=== PATIENT | female | born 1995 | race Caucasian/White ===

== ENCOUNTER 2021-11-26 18:44 | Outpatient (REF) | payer SELFPAY ==
[2021-11-27 09:33] LABS: HBs Antibody, Quant 68.3 mIU/mL (See Note); Hepatitis B Surface Ab Positive (See Note)
[2021-11-27 11:50] LABS: Varicella IgG Antibody Positive (See Note)
[2021-11-27 11:54] LABS: Measles IgG Antibody Positive (See Note); Mumps Antibody IgG Positive (See Note); Rubella IgG Ab (UVM) Positive (See Note)
[2021-11-28 12:43] LABS: TB Interpretation Negative (Negative)
== END 2021-11-26 18:45 | disposition home or self-care (01) ==
LOC: LBO 18:44
PROVIDERS: Visit Provider Nurse Practitioner Family
DX: Z02.1 Encounter for pre-employment examination (principal); Z11.59 Encounter for screening for other viral diseases; Z11.1 Encounter for screening for respiratory tuberculosis; Z01.84 Encounter for antibody response examination
CPT/HCPCS: 36415; 86706; 86787; 86480; 86735; 86762; 86765

== ENCOUNTER 2022-05-28 01:28 | Outpatient (CLI) | payer OTHER, SELFPAY ==
[2022-05-28 12:32] LABS: HCT 38.9 % (36.0-46.0); HGB 12.9 g/dL (11.2-15.7); MCH 29.1 pg (27.0-33.0); MCHC 33.2 % (32.0-36.0); MCV 88 fL (80-95); MPV 10.3 fL (8.0-11.0); Platelet Count 191 10^3/uL (130-400); RBC 4.43 10^6/uL (3.93-5.22); RDW 13.5 % (11.7-14.6); RDW-SD 43.7 fL; WBC 7.78 10^3/uL (4.4-10.8)
[2022-05-28 13:36] LABS: ALT 17 U/L (14-59); AST 14 U/L (15-37); Albumin 3.8 g/dL (3.4-5.0); Alkaline Phosphatase 61 U/L (46-116); Anion Gap 9.6 mmol/L (3-11); BUN 11 mg/dL (7-18); Bilirubin, Total 0.4 mg/dL (0.2-1.0); CO2 26.4 mmol/L (21.0-32.0); CREATININE 0.8 mg/dL (0.55-1.02); Calculated LDL 94 mg/dL (<100); Chloride 103 mmol/L (98-107); Cholesterol 196 mg/dL (<200); Estimated GFR 104.15 (mL/min/1.73m2); Glucose 80 mg/dL (74-106); HDL Cholesterol 84 mg/dL (40-60); Potassium 3.9 mmol/L (3.5-5.1); Sodium 139 mmol/L (136-145); TSH (W/Ref FT4) 1.88 uIU/mL (0.36-3.74); Total Protein 7.7 g/dL (6.4-8.2); Triglyceride 90 mg/dL (<150); Vitamin B12 301 pg/mL (193-986)
[2022-05-30 05:52] LABS: Vitamin D 25 Total 30.9 ng/mL (30-100)
== END 2022-05-28 01:29 | disposition home or self-care (01) ==
LOC: LBO 01:29
PROVIDERS: PCP Student in an Organized Health Care Education/Training Program; Visit Provider Student in an Organized Health Care Education/Training Program
DX: Z13.220 Encounter for screening for lipoid disorders (principal); E46 Unspecified protein-calorie malnutrition; E55.9 Vitamin D deficiency, unspecified; G40.909 Epilepsy, unspecified, not intractable, without status epilepticus; Z90.49 Acquired absence of other specified parts of digestive tract; E53.8 Deficiency of other specified B group vitamins; R00.0 Tachycardia, unspecified; Z76.89 Persons encountering health services in other specified circumstances; Z97.3 Presence of spectacles and contact lenses; Z86.2 Personal history of diseases of the blood and blood-forming organs and certain disorders involving the immune mechanism
CPT/HCPCS: 36415; 80053; 80061; 82306; 85027; 82607; 84443

== ENCOUNTER 2022-07-24 13:07 | Emergency (ER) | payer OTHER, SELFPAY ==
[2022-07-24] VITALS (15 sets, daily range): BP systolic 114–132; BP diastolic 54–78; PULSE 76–134; RESP 19–32; O2SAT 98–100
--- NOTE | 2022-07-24 13:15 | DI.CT_ITS ---
Exam(s) CT HEAD WO EXAM: CT HEAD WO CLINICAL HISTORY: headache occipital with visual defect. TECHNIQUE: Imaging Protocol: Axial computed tomography images with coronal and sagittal reformatted images were created and reviewed COMPARISON: No exams were available for comparison FINDINGS: There is a large area of acute parenchymal hemorrhage seen in the right posterior parietal lobe as we ll as some more inferior foci in the superior occipital lobe as well as medially adjacent to the falx . There is mild surrounding edema and some compression on the posterior horn of the right lateral ve ntricle. There is extension of hemorrhage into the posterior horn of the right lateral ventricle. T here is right to left midline shift of maximally 5 millimeters. The hemorrhage measures roughly 5.2 cm cephalo caudad by 2.8 cm transverse by 3.5 cm AP. No underlying mass is visible but not excluded d ue to large size of the hemorrhage. There is no skull fracture, subdural or epidural collection. The sinuses and mastoid air cells appear clear. The orbits and pituitary are unremarkable. IMPRESSION: Acute parenchymal hemorrhage in the posteromedial right parietal lobe with additional hemorrhagic foc i seen inferiorly. Some edema and midline shift is present. The findings were discussed with Dr. Leonel Funes of the emergency department. RADIATION DOSE DELIVERED: Total DLP DATA REPOSITORY: All CT scans at this facility are submitted to the National Radiology Data Registry (NRDR) Dose Index Registry (DIR) with the [employer] (ACR). RADIATION OPTIMIZATION: All CT scans at this facility use at least one of these dose optimization te chniques: automated exposure control; mA and/or kV adjustment per patient size (includes targeted exa ms where dose is matched to clinical indication); or iterative reconstruction.
--- NOTE | 2022-07-24 13:27 | ED.GENADUL_ITS ---
Discharge Plan Disposition Patient Disposition: Transfer-Acute Inpatient Care Specific Acute Inpt Facility: [facility] Condition: Critical Discharge Details Clinical Impression: Acute intra-cranial hemorrhage Primary Care Provider: Izzy Haque ED Provider: Leonel Funes Home Meds and New Rx's Prescriptions: No Action bupropion HCl [Wellbutrin XL] 150 mg tablet extended release 24 hr 150 mg PO QAM fluoxetine 20 mg capsule 20 mg PO DAILY norgestimate-ethinyl estradiol [Tri Femynor] 0.18/0.215/0.25 mg-35 mcg (28) tablet 1 tab PO DAILY Discharge Data Discharge Date/Time-TO BE ENTERED AT DEPARTURE: 07/24/22 15:03 Medical Decision Making 1330 --27-year-old female presents after presyncopal episode with severe occipital headache, visual disturbance and slurred speech. Patient is tachycardic. Normotensive. She has no slurred speech no visual disturbance. Neurologic exam limited secondary to nausea and spasm. I am concerned about potential for intracranial hemorrhage versus complex migraine. Plan to obtain stat CT of the head. Patient is not on any anticoagulants. It seems like she had a hyperventilatory episode and now has hand spasm bilaterally. She is quite anxious. I will give Versed 1 mg IV. 1400 --I reviewed CT of the head while patient was still in radiology and note significant right parietal intracranial hemorrhage with some mass-effect and midline shift. Patient rushed back to the emergency department. HOB 30%. I have ordered mannitol 0.25 g/kg. Keppra 1 g for seizure prophylaxis. I have called [facility] transfer center to request emergent transfer. Awaiting callback. CT imaging sent for review. -- I called [facility] again to request transfer and they noted that they were uploading images and would call back. [facility] is not flying. I have put ground unit on standby for transfer. Results were discussed with the patient. Patient requesting additional Versed for anxiety. Additional 1 mg Versed given. 1439-- I spoke with on-call neurosurgeon at [facility], discussed ED presentation course, she recommends giving additional mannitol up to 1 g/kg total. She recommends giving additional Keppra 1 g for seizure prophylaxis. I spoke with Dr. Guy, [facility] ED, she will accept the patient in transfer. I reassessed the patient -she is oriented and following commands. She is fatigued. Airway intact. Plan to send to ED RN that assistant in nursing to expedite transfer as we have no butcher capability at this time to continue medications. -- Prior to transfer patient appeared more somnolent. I spoke with her about benefit of intubation pretransfer and she refused. I then decided to travel with the patient to [facility] to ensure safest transfer possible. I observed patient for the entirety of transfer. She did have some episodes of vomiting as well as some focal seizure involving her left upper extremity. She was able to respond and protect her airway entire transport. She did become more somnolent when we arrived at [facility]. Care was transitioned to [facility] ED physician. Lab Data Lab results reviewed: Yes I reviewed the patient's lab results. Labs: Laboratory Tests Range/Units 07/24/22 07/24/22 07/24/22 13:20 13:20 13:20 WBC (4.4-10.8) 10^3/uL 13.15 H RBC (3.93-5.22) 10^6/uL 4.10 Hgb (11.2-15.7) g/dL 12.0 Hct (36.0-46.0) % 35.6 L MCV (80-95) fL 87 MCH (27.0-33.0) pg 29.3 MCHC (32.0-36.0) % 33.7 RDW (11.7-14.6) % 14.5 Plt Count (130-400) 10^3/uL 278 MPV (8.0-11.0) fL 10.2 Immature Gran % 0.2 Neutrophils % 58.9 Lymphocytes % 34.7 Monocytes % 5.2 Eosinophils % 0.6 Basophils % 0.4 Nucleated RBC % (0.0-0.3) % 0.0 Absolute Neutrophils (1.2-6.7) 10^3/uL 7.75 H Absolute Lymphocytes (1.2-3.4) 10^3/uL 4.56 H Absolute Monocytes (0.1-0.8) 10^3/uL 0.68 Absolute Eosinophils (0.0-0.7) 10^3/uL 0.08 Absolute Basophils (0.0-0.2) 10^3/uL 0.05 PT (9.3-11.0) sec 9.9 INR (0.9-1.1) 1.0 APTT (21.0-27.5) sec 19.6 L Sodium (136-145) mmol/L 140 Potassium (3.5-5.1) mmol/L 3.8 Chloride (98-107) mmol/L 102 Carbon Dioxide (21.0-32.0) mmol/L 23.7 Anion Gap (3-11) mmol/L 14.3 H BUN (7-18) mg/dL 9 Creatinine (0.55-1.02) mg/dL 1.0 Est GFR (CKD-EPI 2020) (mL/min/1.73m2) 79.68 Glucose (74-106) mg/dL 105 Calcium (8.5-10.1) mg/dL 9.2 Magnesium (1.8-2.4) mg/dL 2.0 Total Bilirubin (0.2-1.0) mg/dL 0.4 AST (15-37) U/L 14 L ALT (14-59) U/L 12 L Alkaline Phosphatase (46-116) U/L 56 Troponin I (<or=60) ng/L < 50 Total Protein (6.4-8.2) g/dL 7.6 Albumin (3.4-5.0) g/dL 4.0 COVID-19 Source Range/Units 07/24/22 14:17 WBC (4.4-10.8) 10^3/uL RBC (3.93-5.22) 10^6/uL Hgb (11.2-15.7) g/dL Hct (36.0-46.0) % MCV (80-95) fL MCH (27.0-33.0) pg MCHC (32.0-36.0) % RDW (11.7-14.6) % Plt Count (130-400) 10^3/uL MPV (8.0-11.0) fL Immature Gran % Neutrophils % Lymphocytes % Monocytes % Eosinophils % Basophils % Nucleated RBC % (0.0-0.3) % Absolute Neutrophils (1.2-6.7) 10^3/uL Absolute Lymphocytes (1.2-3.4) 10^3/uL Absolute Monocytes (0.1-0.8) 10^3/uL Absolute Eosinophils (0.0-0.7) 10^3/uL Absolute Basophils (0.0-0.2) 10^3/uL PT (9.3-11.0) sec INR (0.9-1.1) APTT (21.0-27.5) sec Sodium (136-145) mmol/L Potassium (3.5-5.1) mmol/L Chloride (98-107) mmol/L Carbon Dioxide (21.0-32.0) mmol/L Anion Gap (3-11) mmol/L BUN (7-18) mg/dL Creatinine (0.55-1.02) mg/dL Est GFR (CKD-EPI 2020) (mL/min/1.73m2) Glucose (74-106) mg/dL Calcium (8.5-10.1) mg/dL Magnesium (1.8-2.4) mg/dL Total Bilirubin (0.2-1.0) mg/dL AST (15-37) U/L ALT (14-59) U/L Alkaline Phosphatase (46-116) U/L Troponin I (<or=60) ng/L Total Protein (6.4-8.2) g/dL Albumin (3.4-5.0) g/dL COVID-19 Source Nasal/Nares Sign Out No HPI General Mode of arrival: ambulatory . Date/Time Provider Initiated Documentation: 07/24/22 13:17 . Limitations to Documentation: no limitations . Information obtained by: patient . 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 She notes she has had headache today. Headache is now worse. Pain localized to occipital head. She has associated nausea and visual defect. She notes she is seeing rainbows. Symptoms are severe. No modifiers. Patient also having cramping in her hands and was having some hyperventilation per nursing. Related Data Home Medications Medication Instructions Recorded Confirmed bupropion HCl 150 mg 24 hr tablet, 150 mg PO QAM 03/29/22 07/24/22 extended release (Wellbutrin XL) fluoxetine 20 mg capsule 20 mg PO DAILY 03/29/22 07/24/22 norgestimate-ethinyl estradiol 1 tab PO DAILY 07/22/22 11/16/22 0.18 mg/0.215mg/0.25mg-35 mcg(28)tablet (Tri Femynor) Allergies Allergy/AdvReac Type Severity Reaction Status Date / Time No Known Allergies Allergy Verified 06/07/22 11:03 Review of Systems All systems reviewed & are unremarkable except as noted in HPI and below Constitutional Constitutional: Denies fever(s) Neurologic Neurologic: Reports as per HPI PFSH All Active Problems (Updated 07/24/22 @ 14:41 by Leonel Funes MD) Acute intra-cranial hemorrhage (Acute) General counseling and advice for contraceptive management (Acute) Has received third dose of hepatitis B vaccine (Chronic) s/p multiple immuniztn w/o conversion .. [ ] Occ Med, Summer 2021 Encounter for medication review and counseling (Acute) consider wellbutrin review with KG .. SL vs XL due to elevated HR and sleep issues at times At risk for osteoporosis (Acute) 2' Vit B12, Vit D deficiency < 26yo .. presuming malabsorption.. Screening TBD. Regular menses. Active. Non smoker. Family history of high cholesterol (Acute) Mo .. but no active known CVD Wears glasses (Chronic) Contacts Vitamin B12 deficiency (Acute) Presumed malabsorption, but no work up per [place] [facility] Hx per pt report. Vitamin D deficiency (Acute) Medical History Hx: UTI (urinary tract infection) Three, but w/o complications (@ ROS, 27 yo) Migraine As teen, none now x 2 yrr (05/22/22). Seizure disorder As a child, gran mal and Hx Depakote. None since 16yo. Surgical History History of cholecystectomy (~09/2019) 2' obstructing stone, sudden, urgent surgery. Intermittent nausea since then.. Family History Maternal Grandfather Alcohol use disorder Mother Depression Heart disease Father Depression Brother Depression Social History Smoking/Tobacco Use Status: Never Smoking risk assessment performed?: Yes Alcohol Intake: never Drug use: Never Substance use type: does not use Adopted: No Caregiver/Support person: No Foster care: No Household members: spouse Housing: house Number of Children: 0 Communication Needs: Corrective Lenses Education Level: college Details: bachelor's degree Do you need help understanding health information?: Never current occupation: RN Pets and animals: No Sexually active: Yes Do you think of yourself as: straight/heterosexual Current gender identity: female What is your relationship status?: How often do you talk on the phone with friends or family?: twice per week How often do you get together with friends or relatives?: once per week How often do you attend adventist or druze services?: decline to answer Do you belong to any clubs or organized social groups?: no Panel score (0-1 are the most socially isolated patients): 2 What type of physical activity do you participate in: other Details: hiking, kayaking and yoga Duration: 30-45 minutes/day Frequency: 3-4 times per week Amanda/Sabianist: None Special amanda needs: No Seatbelt use: always Helmet use: Yes Helmet use: always Drive intox or ride w/intox day haul or farm charter bus driver: No Exam Const General: cooperative and in distress Orientation: alert, oriented to person, oriented to place and oriented to time [facility] Head: normocephalic and atraumatic Mouth: mucous membranes dry Eyes Conjunctivae: normal conjunctivae Sclera: normal sclerae Pupils: PERRL Neck Neck: trachea midline and supple Resp Auscultation: clear to auscultation bilaterally, no rales, no rhonchi and no wheezes Cardio Rate: tachycardic Rhythm: regular rhythm Heart Sounds: no murmurs GI Palpation: soft, not firm, no guarding, no masses, not rigid and nontender Skin General skin exam: no rashes or lesions noted Neuro General: patient alert and patient awake Speech: other (Slurred speech) Other: Patient with spasm of hands bilaterally, exam limited secondary to spasm and nausea Extrem General: no edema Other: Spasm of her hands Psych Appearance: grossly normal Mental Status: mental status grossly normal Affect: anxious affect Critical Care Time Critical Care Time Critical Care Time: Yes Total Critical Care Time: 75 Attestation: I spent greater than 75 minutes addressing this patient's immediate life threats. Please see MDM section of note. This time was spent engaged in work dir ectly related to the patient's care, exclusive of separate procedures, and failure to initiate these interventions would have likely resulted in clinically significant or life threatening deterioration in the patient's condition.
[2022-07-24] MEDS: Lactated Ringers 1,000 ML 1000 ML IV (13:33)
--- NOTE | 2022-07-24 13:33 | NUR.NOTE ---
Nursing Note: 1315-Brought patient to room 7 in a wheelchair. Pt crying and stating that her hands are numb. Pt hyperventalting. Encouraged pt to slow breathing. Pt developed slowed speech and difficulty directing her hand to put her finger in the pulse ox. 1320-Pt became nauseated. IV established. Blood sample drawn. Dr. Funes at bedside for evaluation. Speech worsening.
[2022-07-24] MEDS: Ondansetron 4 MG/2 ML VIAL IVP (13:34)
[2022-07-24] MEDS: Midazolam 2 MG/2 ML VIAL 1 MG IVP ×2 (13:35→14:32)
[2022-07-24] MEDS: levETIRAcetam 1,000 MG in Normal Saline 100 ML 400 MG IVPB ×2 (14:00→14:42)
[2022-07-24 14:02] LABS: Abs Immature Grans 0.03 10^3/uL (0.0-0.06); Absolute Basophil Count 0.05 10^3/uL (0.0-0.2); Absolute Eosinophil Count 0.08 10^3/uL (0.0-0.7); Absolute Lymphocyte Count 4.56 10^3/uL (1.2-3.4); Basophils % 0.4; Eosinophils % 0.6; HCT 35.6 % (36.0-46.0); Immature Grans % 0.2; Lymphocytes % 34.7; MCH 29.3 pg (27.0-33.0); MCHC 33.7 % (32.0-36.0); MCV 87 fL (80-95); MPV 10.2 fL (8.0-11.0); Monocytes % 5.2; Neutrophils % 58.9; Platelet Count 278 10^3/uL (130-400); RDW 14.5 % (11.7-14.6); RDW-SD 46.3 fL; WBC 13.15 10^3/uL (4.4-10.8)
[2022-07-24 14:03] LABS: Absolute Monocyte Count 0.68 10^3/uL (0.1-0.8); Absolute Neutrophil Count 7.75 10^3/uL (1.2-6.7)
[2022-07-24 14:21] LABS: ALT 12 U/L (14-59); AST 14 U/L (15-37); Alkaline Phosphatase 56 U/L (46-116); Anion Gap 14.3 mmol/L (3-11); BUN 9 mg/dL (7-18); Bilirubin, Total 0.4 mg/dL (0.2-1.0); CO2 23.7 mmol/L (21.0-32.0); Calcium 9.2 mg/dL (8.5-10.1); Chloride 102 mmol/L (98-107); Estimated GFR 79.68 (mL/min/1.73m2); Glucose 105 mg/dL (74-106); Potassium 3.8 mmol/L (3.5-5.1); Sodium 140 mmol/L (136-145); Total Protein 7.6 g/dL (6.4-8.2); Troponin I < 50 ng/L (<or=60)
[2022-07-24 14:21] LABS: Source Nasal/Nares
[2022-07-24 14:31] LABS: PTT Activated 19.6 sec (21.0-27.5); Prothrombin Time 9.9 sec (9.3-11.0)
[2022-07-24 14:53] LABS: COVID-19 PCR Negative (Negative)
[2022-07-24] MEDS: fentaNYL 100 MCG/2 ML VIAL 50 MCG IVP (14:54)
--- NOTE | 2022-07-24 17:45 | NUR.NOTE ---
Nursing Note: Dr. Funes asked to get information from [place], [place] [phone]. They referred me to another [facility] facility at [phone] for the MRI/MRA reports from 05/02/2020. They stated to me due to HIPPA that they would need a release from the patient in order to release those records. They gave me the ordering providers information. Left a message for them to call to send information. Brayden Mujica MD [id number] [place], [place] [phone] Called [facility] @ [phone] and Ciera from the ED stated that they had contacted them and that they would be receiving records.
== END 2022-07-24 15:03 | disposition short-term general hospital (02) ==
LOC: ER 14:43
PROVIDERS: Emergency Provider Student in an Organized Health Care Education/Training Program; PCP Student in an Organized Health Care Education/Training Program
DX: I62.9 Nontraumatic intracranial hemorrhage, unspecified (principal); Z20.822 Contact with and (suspected) exposure to COVID-19
CPT/HCPCS: 36415; 80053; 87635; 96361; 96365; 96367; 96368; 96375; 96376; 99291; 99292; 70450; 83735; 84484; 85025; 85610; 85730; J1953; J2250; J2405; J3010

== ENCOUNTER 2022-11-16 20:49 | Emergency (ER) | payer OTHER, SELFPAY ==
[2022-11-16] VITALS (15 sets, daily range): BP systolic 101–146; BP diastolic 59–82; PULSE 71–115; RESP 16–23; TEMP 37.1; O2SAT 97–100
--- NOTE | 2022-11-16 20:45 | DI.CT_ITS ---
Exam(s) CT HEAD WO EXAM: CT HEAD WO CLINICAL HISTORY: Dizziness. TECHNIQUE: Imaging Protocol: Axial computed tomography images with coronal and sagittal reformatted images were created and reviewed COMPARISON: CT CT HEAD WO from 07/24/[address] BRAIN CTA from 11/16/2022 FINDINGS: Ventricles and Extra axial spaces: Normal in size and morphology for the patient's age. Dilatation of the posterior horn of the right lateral ventricle adjacent area of encephalomalacia. Ventricles o therwise normal in size. Hemorrhage: None. Cerebral parenchyma: Area of encephalomalacia in the right parietal occipital area. This is in locat ion of the previously noted hemorrhage. No acute hemorrhage or infarct is seen. There is no evidenc e of mass. Midline shift: None. Brainstem/Cerebellum: Normal. Calvarium: Normal. Visualized Paranasal sinuses/Mastoids: Clear. Soft Tissues: Unremarkable. IMPRESSION: Old area of encephalomalacia right a parietal occipital region. No acute intracranial process. RADIATION DOSE DELIVERED: 768.73mGy.cm Total DLP DATA REPOSITORY: All CT scans at this facility are submitted to the National Radiology Data Registry (NRDR) Dose Index Registry (DIR) with the [employer] (ACR). RADIATION OPTIMIZATION: All CT scans at this facility use at least one of these dose optimization te chniques: automated exposure control; mA and/or kV adjustment per patient size (includes targeted exa ms where dose is matched to clinical indication); or iterative reconstruction.
--- NOTE | 2022-11-16 20:45 | RT.EKG_ITS ---
APPROVED REPORT Exam: Resting ECG Reason for Exam: dizziness s/p cva Patient Location: E HR:83 bpm ECG Measurements Heart Rate 83 AXIS NM 133 P 80 QRSd 68 QRS 75 QT 360 T 85 QTc 423 Conclusion Sinus rhythm...normal P axis, V-rate 60- 99 Physician: no stemi
--- NOTE | 2022-11-16 20:55 | ED.GENADUL_ITS ---
Discharge Plan Disposition Patient Disposition: Home Condition: Stable Discharge Details Clinical Impression: Dizziness Primary Care Provider: Izzy Haque ED Provider: Maegan Rodriguez Home Meds and New Rx's Prescriptions: Continued ecsywqxace-fuzgmmkyfkirh-ewju 50-325-40 mg capsule 1 cap PO Q6H PRN (Reason: headache) Rx Instructions: Use sparingly. Eliquis 5 mg tablet 5 mg PO BID Qty: 180 2RF Rx Instructions: [place] [facility] [place]vet[place] 500 mg tablet 500 mg PO BID Qty: 180 3RF Rx Instructions: [place] [facility] [place]abap[place] 300 mg capsule 300 mg PO TID Qty: 270 3RF Rx Instructions: [place] [facility] [place]ox[place] 20 mg capsule 20 mg PO DAILY acetaminophen 325 mg capsule 325 mg PO Q4H PRN Rx Instructions: [place] [facility] hydroxyzine HCl 25 mg tablet 25 mg PO QHS Rx Instructions: [place] [facility] lidocaine 4 % adhesive patch,medicated 1 patch topical DAILY PRN Discharge Instructions Instructions: Dizziness (ED) Additional Instructions: Please take the nausea medication as prescribed. CT of your head is within normal limits nothing acute. Please take the meclizine as needed for dizziness. Please return to the ER for any worsening symptoms. Follow up with primary care provider in 3-5 days. Return to ED sooner if any worsening or concerns. Increase oral fluids. Referrals: Izzy Haque DO [Primary Care Provider] - 3 days Medical Decision Making 27-year-old female with a past medical history of intracranial hemorrhage, epilepsy, seizure disorder presents with cute onset of dizziness and nausea while watching TV proximately 30 minutes prior to arrival. She denies headache or any other associated symptoms. She is currently going through physical therapy after having a stroke in July of last year. Informed by [facility] operations staff officer that patient just finished a Keppra taper and was taken off her fluoxetine recently as well. Work-up ordered including CBC CMP, TSH, urinalysis, CT head, normal saline and Zofran. CBC is within normal limits, CMP shows potassium 3.2, glucose 147 magnesium 1.7, TSH is elevated 8.69, urinalysis within normal limits. Patient given meclizine and magnesium 400 mg tolerated well without any vomiting. Patient given a meclizine tablet to go and Zofran ODT to go. Discussed tricked return instructions and follow-up care. Patient and family verbalized understanding. This text was generated using Factor 14ation system, please disregard any oddities of phrase or misspellings. Medical Records Medical records reviewed: Yes I reviewed the patient's medical records. Imaging Data Radiologic Study: Imaging: CT Scan Radiologist's impression: FINDINGS: ANTERIOR CIRCULATION: Right internal carotid artery: Intracranial segment is patent with no significant stenosis. No aneurysm. Right middle cerebral artery: No occlusion or significant stenosis. No aneurysm. Right anterior cerebral artery: No occlusion or significant stenosis. No aneurysm. Left internal carotid artery: Intracranial segment is patent with no significant stenosis. No aneurysm. Left middle cerebral artery: No occlusion or significant stenosis. No aneurysm. Left anterior cerebral artery: No occlusion or significant stenosis. No aneurysm. POSTERIOR CIRCULATION: Right vertebral artery: No occlusion or significant stenosis. No aneurysm. Left vertebral artery: No occlusion or significant stenosis. No aneurysm. Basilar artery: No occlusion or significant stenosis. No aneurysm. Right posterior cerebral artery: No occlusion or significant stenosis. No aneurysm. Left posterior cerebral artery: No occlusion or significant stenosis. No aneurysm. Brain: No definite mass, mass effect, or midline shift. Cerebral ventricles: No ventriculomegaly. Bones/joints: Unremarkable. No acute fracture. Soft tissues: Unremarkable. IMPRESSION: No stenosis or aneurysm. Thank you for allowing us to participate in the care of your patient. Dictated and Authenticated by: Keith Greenfield MD Radiologic Study #2: Imaging: CT Scan Radiologist's impression: FINDINGS: Brain: Right parieto-occipital encephalomalacia related to remote episode of parenchymal hemorrhage. No evidence for acute transcortical infarct. No mass effect or midline shift. No extraaxial collection. No acute intracranial hemorrhage. Basal cisterns are patent. Cerebral ventricles: No ventriculomegaly. Paranasal sinuses: Visualized sinuses are unremarkable. No fluid levels. Mastoid air cells: Visualized mastoid air cells are well aerated. Bones/joints: Unremarkable. No acute fracture. Soft tissues: Unremarkable. IMPRESSION: No evidence for acute transcortical infarct, acute intracranial hemorrhage, or mass effect. Thank you for allowing us to participate in the care of your patient. Dictated and Authenticated by: Keith Greenfield MD Lab Data Lab results reviewed: Yes I reviewed the patient's lab results. Labs: Laboratory Tests Range/Units 11/16/22 11/16/22 11/16/22 21:00 21:00 21:12 WBC (4.4-10.8) 10^3/uL 8.62 RBC (3.93-5.22) 10^6/uL 4.19 Hgb (11.2-15.7) g/dL 11.8 Hct (36.0-46.0) % 36.7 MCV (80-95) fL 88 MCH (27.0-33.0) pg 28.2 MCHC (32.0-36.0) % 32.2 RDW (11.7-14.6) % 14.4 Plt Count (130-400) 10^3/uL 207 MPV (8.0-11.0) fL 10.2 Immature Gran % 0.2 Neutrophils % 51.7 Lymphocytes % 38.6 Monocytes % 5.6 Eosinophils % 3.4 Basophils % 0.5 Nucleated RBC % (0.0-0.3) % 0.0 Absolute Neutrophils (1.2-6.7) 10^3/uL 4.46 Absolute Lymphocytes (1.2-3.4) 10^3/uL 3.33 Absolute Monocytes (0.1-0.8) 10^3/uL 0.48 Absolute Eosinophils (0.0-0.7) 10^3/uL 0.29 Absolute Basophils (0.0-0.2) 10^3/uL 0.04 Sodium (136-145) mmol/L 140 Potassium (3.5-5.1) mmol/L 3.2 L Chloride (98-107) mmol/L 103 Carbon Dioxide (21.0-32.0) mmol/L 26.2 Anion Gap (3-11) mmol/L 10.8 BUN (7-18) mg/dL 7 Creatinine (0.55-1.02) mg/dL 0.8 Est GFR (CKD-EPI 2020) (mL/min/1.73m2) 104.15 Glucose (74-106) mg/dL 147 H Calcium (8.5-10.1) mg/dL 8.7 Magnesium (1.8-2.4) mg/dL 1.7 L Total Bilirubin (0.2-1.0) mg/dL 0.3 AST (15-37) U/L 10 L ALT (14-59) U/L 20 Alkaline Phosphatase (46-116) U/L 78 Troponin I (<or=60) ng/L < 50 Total Protein (6.4-8.2) g/dL 7.5 Albumin (3.4-5.0) g/dL 4.3 TSH (0.36-3.74) uIU/mL 8.69 H Urine Color (Yellow) Yellow Urine Clarity (Clear) Clear Urine pH (5-8) 6.5 Ur Specific [place] (1.005-1.025) 1.010 Urine Protein (Negative) mg/dL Negative Urine Ketones (Negative) mg/dL Negative Urine Blood (Negative) Negative Urine Nitrite (Negative) Negative Urine Bilirubin (Negative) Negative Urine Urobilinogen (Up to 0.2) mg/dL 0.2 Ur Leukocyte Esterase (Negative) Negative Urine Glucose (Negative) mg/dL Negative Range/Units 11/16/22 23:53 WBC (4.4-10.8) 10^3/uL RBC (3.93-5.22) 10^6/uL Hgb (11.2-15.7) g/dL Hct (36.0-46.0) % MCV (80-95) fL MCH (27.0-33.0) pg MCHC (32.0-36.0) % RDW (11.7-14.6) % Plt Count (130-400) 10^3/uL MPV (8.0-11.0) fL Immature Gran % Neutrophils % Lymphocytes % Monocytes % Eosinophils % Basophils % Nucleated RBC % (0.0-0.3) % Absolute Neutrophils (1.2-6.7) 10^3/uL Absolute Lymphocytes (1.2-3.4) 10^3/uL Absolute Monocytes (0.1-0.8) 10^3/uL Absolute Eosinophils (0.0-0.7) 10^3/uL Absolute Basophils (0.0-0.2) 10^3/uL Sodium (136-145) mmol/L Potassium (3.5-5.1) mmol/L Chloride (98-107) mmol/L Carbon Dioxide (21.0-32.0) mmol/L Anion Gap (3-11) mmol/L BUN (7-18) mg/dL Creatinine (0.55-1.02) mg/dL Est GFR (CKD-EPI 2020) (mL/min/1.73m2) Glucose (74-106) mg/dL Calcium (8.5-10.1) mg/dL Magnesium (1.8-2.4) mg/dL Total Bilirubin (0.2-1.0) mg/dL AST (15-37) U/L ALT (14-59) U/L Alkaline Phosphatase (46-116) U/L Troponin I (<or=60) ng/L Cancelled Total Protein (6.4-8.2) g/dL Albumin (3.4-5.0) g/dL TSH (0.36-3.74) uIU/mL Urine Color (Yellow) Urine Clarity (Clear) Urine pH (5-8) Ur Specific [place] (1.005-1.025) Urine Protein (Negative) mg/dL Urine Ketones (Negative) mg/dL Urine Blood (Negative) Urine Nitrite (Negative) Urine Bilirubin (Negative) Urine Urobilinogen (Up to 0.2) mg/dL Ur Leukocyte Esterase (Negative) Urine Glucose (Negative) mg/dL HPI General Mode of arrival: ambulatory . Date/Time Provider Initiated Documentation: 11/16/22 20:49 . Limitations to Documentation: no limitations . Information obtained by: patient, RN notes reviewed and old records reviewed . HPI Narrative: 27-year-old female with a past medical history of intracranial hemorrhage, epilepsy, seizure disorder presents with cute onset of dizziness and nausea while watching TV proximately 30 minutes prior to arrival. She denies headache or any other associated symptoms. She is currently going through physical therapy after having a stroke in July of last year. Informed by [facility] operations staff officer that patient just finished a Keppra taper and was taken off her fluoxetine recently as well. Related Data Home Medications Medication Instructions Recorded Confirmed fluoxetine 20 mg capsule 20 mg PO DAILY 03/29/22 10/30/22 acetaminophen 325 mg capsule 325 mg PO Q4H PRN 08/09/22 10/30/22 hydroxyzine HCl 25 mg tablet 25 mg PO QHS 08/09/22 11/16/22 lidocaine 4 % topical patch 1 patch topical DAILY PRN 08/22/22 10/30/22 cowmaqghsx-ohgyepswrbuvd-mnbzwqgg 1 cap PO Q6H PRN headache 08/26/22 10/30/22 50 mg-325 mg-40 mg capsule apixaban 5 mg tablet (Eliquis) 5 mg PO BID #180 tabs 08/27/22 11/16/22 gabapentin 300 mg capsule 300 mg PO TID #270 caps 08/27/22 11/16/22 levetiracetam 500 mg tablet 500 mg PO BID #180 tabs 08/27/22 10/30/22 Previous Rx's Medication Instructions Recorded apixaban 5 mg tablet (Eliquis) 5 mg PO BID #180 tabs 08/27/22 gabapentin 300 mg capsule 300 mg PO TID #270 caps 08/27/22 levetiracetam 500 mg tablet 500 mg PO BID #180 tabs 08/27/22 Allergies Allergy/AdvReac Type Severity Reaction Status Date / Time No Known Allergies Allergy Verified 11/16/22 20:57 General Stated Complaint: Dizzy/Sync PATRICE: 3 Review of Systems All systems reviewed & are unremarkable except as noted in HPI and below PFSH All Active Problems (Updated 11/16/22 @ 22:47 by Maegan Rodriguez NP) Dizziness (Acute) Anticoagulated by anticoagulation treatment (Acute) IUD surveillance (Acute ~10/15/22) Kyleena Nontraumatic cortical hemorrhage of right cerebral hemisphere (Acute) Developmental venous anomaly of cerebrum (Acute) Occipital stroke (Acute) per pt report, 08/18/22, ik [ ] awaiting [facility] [place] [facility] [place]: Rt Parieto-Occip ICH in setting of CVT Vision loss (Acute) per pt report, tel, 08/18/22, ik Cerebral venous sinus thrombosis (Acute) Medical History Acute intracerebral hemorrhage s/p thrombus At risk for osteoporosis 2' Vit B12, Vit D deficiency < 26yo .. presuming malabsorption.. Screening TBD. Regular menses. Active. Non smoker. Brain swelling per pt report, tel, 08/18/22, ik Depressive disorder Encounter for medication review and counseling consider wellbutrin review with KG .. SL vs XL due to elevated HR and sleep issues at times Epilepsy Family history of high cholesterol Mo .. but no active known CVD Has received third dose of hepatitis B vaccine s/p multiple immuniztn w/o conversion .. [ ] Occ Med, Summer 2021 Hx: UTI (urinary tract infection) Three, but w/o complications (@ ROS, 27 yo) Migraine As teen, none now x 2 yrr (05/22/22). Presence of IUD [place] IUD inserted 10/15/22 Seizure disorder As a child, gran mal and Hx Depakote. None since 16yo. Vitamin B12 deficiency Presumed malabsorption, but no work up per [facility] Hx per pt report. Vitamin D deficiency Wears glasses Contacts Surgical History History of cholecystectomy (~09/2019) 2' obstructing stone, sudden, urgent surgery. Intermittent nausea since then.. Family History Maternal Grandfather Alcohol use disorder Mother Depression Heart disease Father Depression Brother Depression Social History Smoking/Tobacco Use Status: Never Smoking risk assessment performed?: Yes Alcohol Intake: never Drug use: Never Substance use type: does not use Adopted: No Caregiver/Support person: No Foster care: No Household members: spouse Housing: house Number of Children: 0 Communication Needs: Corrective Lenses Education Level: college Details: bachelor's degree Do you need help understanding health information?: Never current occupation: RN Pets and animals: No Sexually active: Yes Do you think of yourself as: straight/heterosexual Current gender identity: female What is your relationship status?: How often do you talk on the phone with friends or family?: twice per week How often do you get together with friends or relatives?: once per week How often do you attend druze or church services?: decline to answer Do you belong to any clubs or organized social groups?: no Panel score (0-1 are the most socially isolated patients): 2 What type of physical activity do you participate in: other Details: hiking, kayaking and yoga Duration: 30-45 minutes/day Frequency: 3-4 times per week Amanda/Yazidi: None Special amanda needs: No Seatbelt use: always Helmet use: Yes Helmet use: always Drive intox or ride w/intox tank truck driver: No Female Reproductive History Menstrual control method: progestin IUCD History History 0 Para Hx # Term Pregnancies Multiple births Hx # Pregnancies Ectopic pregnancies AB induced Hx Number of Living Children AB spontaneous Exam Narrative Exam Narrative: Constitutional: Alert and oriented x3. Appears stated age. Normal body habitus. Head: Normocephalic, no trauma. Eyes: Pupils PERRL, Red reflex noted, EOM's intact. Eyelids symmetrical without lesions, discharge, or swelling. ENT: Bilateral TM's WNL, External ear normal to inspection, no mastoid TTP, swelling, or erythema, Nasal turbinates WNL, no nasal discharge. Normal dentition, Posterior pharynx WNL, no exudate. Chest: RRR, Normal S1, S2, distal pulses intact. Resp: Lungs clear to auscultation bilaterally, no wheezes, rales, or rhonchi. Abdomen: Soft, non-distended, Normoactive bowel sounds all 4 quads. Musculoskeletal: Normal gait, 5/5 strength to all four extremities. Skin: No suspicious rashes or lesions. Capillary refill less than 2 sec. Neurologic: Cranial nerves II-XII intact. Alert and oriented x 3. Motor: No deficits noted. Sensory: Intact bilaterally all 4 extremities. Reflexes: DTR's intact bilaterally.. Hematologic/Lymphatic: No ecchymosis, no lymphadenopathy. Course Vital Signs Vital signs: Vital Signs Temperature 37.1 C 11/16/22 20:52 Pulse 115 H 11/16/22 20:52 Respiratory Rate 18 11/16/22 20:52 Blood Pressure 146/82 H 11/16/22 20:52 Pulse Oximetry 100 11/16/22 20:52 Temperature 37.1 C 11/16/22 20:52 Temperature Source Tympanic 11/16/22 20:52 Pulse 115 H 11/16/22 20:52 Respiratory Rate 18 11/16/22 20:52 Blood Pressure 146/82 H 11/16/22 20:52 Blood Pressure Position Sitting 11/16/22 20:52 Pulse Oximetry 100 11/16/22 20:52 Oxygen Delivery Method Room Air 11/16/22 20:52 Oxygen Flow Rate 0 11/16/22 20:52
[2022-11-16] MEDS: Normal Saline 1,000 ML 1000 ML IV (21:05)
[2022-11-16] MEDS: Ondansetron 4 MG/2 ML VIAL IVP (21:06)
[2022-11-16 21:10] LABS: Abs Immature Grans 0.02 10^3/uL (0.0-0.06); Absolute Basophil Count 0.04 10^3/uL (0.0-0.2); Absolute Eosinophil Count 0.29 10^3/uL (0.0-0.7); Absolute Lymphocyte Count 3.33 10^3/uL (1.2-3.4); Absolute Monocyte Count 0.48 10^3/uL (0.1-0.8); Absolute Neutrophil Count 4.46 10^3/uL (1.2-6.7); Basophils % 0.5; Eosinophils % 3.4; HCT 36.7 % (36.0-46.0); HGB 11.8 g/dL (11.2-15.7); Immature Grans % 0.2; Lymphocytes % 38.6; MCH 28.2 pg (27.0-33.0); MCHC 32.2 % (32.0-36.0); MCV 88 fL (80-95); MPV 10.2 fL (8.0-11.0); Monocytes % 5.6; Neutrophils % 51.7; Platelet Count 207 10^3/uL (130-400); RBC 4.19 10^6/uL (3.93-5.22); RDW 14.4 % (11.7-14.6); RDW-SD 46.5 fL; WBC 8.62 10^3/uL (4.4-10.8)
--- NOTE | 2022-11-16 21:15 | DI.CT_ITS ---
Exam(s) CT BRAIN CTA EXAM: CT BRAIN CTA CLINICAL HISTORY: Dizziness. TECHNIQUE: Imaging Protocol: Axial CT angiography was performed with multi-slice acquisition and mu lti-planar and/or 3D reconstructions. CONTRAST MATERIAL: Intravenous: Omnipaque 350 Contrast volume:85 cc COMPARISON: CT CT HEAD WO from 11/16/2022 FINDINGS: Internal Carotid Arteries: Petrous: Normal. Cavernous: Normal. Cerebral: Normal. Middle Cerebral Arteries: Right: No aneurysm, occlusion or significant stenosis. Left: No aneurysm, occlusion or significant stenosis. Anterior Cerebral Arteries: Right: No aneurysm, occlusion or significant stenosis. Left: No aneurysm, occlusion or significant stenosis. Posterial Cerebral Arteries: Right: No aneurysm, occlusion or significant stenosis. Left: No aneurysm, occlusion or significant stenosis. Vertebral Arteries: Right: No aneurysm, occlusion or significant stenosis. Left: No aneurysm, occlusion or significant stenosis. Basilar Artery: No aneurysm, occlusion or significant stenosis. IMPRESSION: Normal CTA examination of the [place]. RADIATION DOSE DELIVERED: 1,103.2mGy.cm Total DLP DATA REPOSITORY: All CT scans at this facility are submitted to the National Radiology Data Registry (NRDR) Dose Index Registry (DIR) with the [employer] (ACR). RADIATION OPTIMIZATION: All CT scans at this facility use at least one of these dose optimization te chniques: automated exposure control; mA and/or kV adjustment per patient size (includes targeted exa ms where dose is matched to clinical indication); or iterative reconstruction.
[2022-11-16 21:18] LABS: Bilirubin Negative (Negative); Blood Negative (Negative); Clarity Clear (Clear); Glucose Negative (Negative); Ketones Negative (Negative); Leukocyte Esterase Negative (Negative); Nitrite Negative (Negative); Urobilinogen 0.2 mg/dL (Up to 0.2); pH 6.5 (5-8)
[2022-11-16 21:35] LABS: ALT 20 U/L (14-59); AST 10 U/L (15-37); Albumin 4.3 g/dL (3.4-5.0); Alkaline Phosphatase 78 U/L (46-116); Anion Gap 10.8 mmol/L (3-11); BUN 7 mg/dL (7-18); Bilirubin, Total 0.3 mg/dL (0.2-1.0); CO2 26.2 mmol/L (21.0-32.0); CREATININE 0.8 mg/dL (0.55-1.02); Calcium 8.7 mg/dL (8.5-10.1); Chloride 103 mmol/L (98-107); Estimated GFR 104.15 (mL/min/1.73m2); Glucose 147 mg/dL (74-106); Magnesium 1.7 mg/dL (1.8-2.4); Potassium 3.2 mmol/L (3.5-5.1); Sodium 140 mmol/L (136-145); TSH 8.69 uIU/mL (0.36-3.74); Total Protein 7.5 g/dL (6.4-8.2); Troponin I < 50 ng/L (<or=60)
[2022-11-16] MEDS: Normal Saline - Diluent 50 ML VIAL IV (21:36)
[2022-11-16] MEDS: Omnipaque 350 MG/ML 100 ML BTL IJ (21:37)
--- NOTE | 2022-11-16 22:00 | DI.VRAD_ITS ---
PROCEDURE INFORMATION: Exam: CT Head Without Contrast Exam date and time: 11/16/2022 9:17 PM Age: 27 years old Clinical indication: Dizziness TECHNIQUE: Imaging protocol: Computed tomography of the head without contrast. COMPARISON: CT HEAD WO 07/24/2022 1:41 PM FINDINGS: Brain: Right parieto-occipital encephalomalacia related to remote episode of parenchymal hemorrhage. No evidence for acute transcortical infarct. No mass effect or midline shift. No extra-axial collection. No acute intracranial hemorrhage. Basal cisterns are patent. Cerebral ventricles: No ventriculomegaly. Paranasal sinuses: Visualized sinuses are unremarkable. No fluid levels. Mastoid air cells: Visualized mastoid air cells are well aerated. Bones/joints: Unremarkable. No acute fracture. Soft tissues: Unremarkable. IMPRESSION: No evidence for acute transcortical infarct, acute intracranial hemorrhage, or mass effect. Dictated and Authenticated by: Keith Greenfield MD. Ordering:GWENDOLYN Issa MD
--- NOTE | 2022-11-16 22:02 | DI.VRAD_ITS ---
PROCEDURE INFORMATION: Exam: CTA Head With Contrast, Arteriography Exam date and time: 11/16/2022 9:24 PM Age: 27 years old Clinical indication: Dizziness and giddiness; Patient HX: Dizziness, sudden onset today, per PT: Previous bleed imaging done [facility] [place] TECHNIQUE: Imaging protocol: Computed tomographic angiography of the head with contrast. Exam focused on the arteries. 3D rendering (Not supervised by radiologist): MIP and/or 3D reconstructed images were created by the technologist. COMPARISON: CT HEAD WO 11/16/2022 9:17 PM FINDINGS: ANTERIOR CIRCULATION: Right internal carotid artery: Intracranial segment is patent with no significant stenosis. No aneurysm. Right middle cerebral artery: No occlusion or significant stenosis. No aneurysm. Right anterior cerebral artery: No occlusion or significant stenosis. No aneurysm. Left internal carotid artery: Intracranial segment is patent with no significant stenosis. No aneurysm. Left middle cerebral artery: No occlusion or significant stenosis. No aneurysm. Left anterior cerebral artery: No occlusion or significant stenosis. No aneurysm. POSTERIOR CIRCULATION: Right vertebral artery: No occlusion or significant stenosis. No aneurysm. Left vertebral artery: No occlusion or significant stenosis. No aneurysm. Basilar artery: No occlusion or significant stenosis. No aneurysm. Right posterior cerebral artery: No occlusion or significant stenosis. No aneurysm. Left posterior cerebral artery: No occlusion or significant stenosis. No aneurysm. Brain: No definite mass, mass effect, or midline shift. Cerebral ventricles: No ventriculomegaly. Bones/joints: Unremarkable. No acute fracture. Soft tissues: Unremarkable. IMPRESSION: No stenosis or aneurysm. Dictated and Authenticated by: Keith Greenfield MD. Ordering:GWENDOLYN Issa MD
[2022-11-16] MEDS: Magnesium Oxide 400 MG TAB PO (22:35)
[2022-11-16] MEDS: Meclizine 25 MG TAB PO ×2 (22:35→23:13)
[2022-11-16] MEDS: Ondansetron O.D.T. 4 MG TABEF, 3 TABS/BTL PO (23:05)
== END 2022-11-16 23:17 | disposition home or self-care (01) ==
PROVIDERS: Emergency Provider Registered Nurse Emergency; PCP Student in an Organized Health Care Education/Training Program
DX: R42 Dizziness and giddiness (principal); G40.909 Epilepsy, unspecified, not intractable, without status epilepticus; R11.0 Nausea; Z86.73 Personal history of transient ischemic attack (TIA), and cerebral infarction without residual deficits; R94.6 Abnormal results of thyroid function studies
CPT/HCPCS: 70496; 80053; 93005; 96361; 96374; 99285; 70450; 81003; 83735; 84443; 84484; 85025; 93010; 99284; J2405; J3490

== ENCOUNTER 2022-12-03 23:23 | Outpatient (CLI) | payer OTHER, SELFPAY ==
[2022-12-03 14:28] LABS: Anion Gap 8.8 mmol/L (3-11); BUN 19 mg/dL (7-18); CO2 29.2 mmol/L (21.0-32.0); CREATININE 0.7 mg/dL (0.55-1.02); Chloride 104 mmol/L (98-107); Estimated GFR 122.25 (mL/min/1.73m2); Glucose 81 mg/dL (74-106); Magnesium 2.2 mg/dL (1.8-2.4); Potassium 3.9 mmol/L (3.5-5.1); Sodium 142 mmol/L (136-145); TSH (W/Ref FT4) 3.81 uIU/mL (0.36-3.74); Vitamin B12 336 pg/mL (193-986)
[2022-12-03 14:45] LABS: FREE T4 0.79 ng/dL (0.76-1.46)
[2022-12-03 14:49] LABS: Folate 11.5 ng/mL (8.6-20.0)
== END 2022-12-03 23:24 | disposition home or self-care (01) ==
LOC: LBO 23:24
PROVIDERS: PCP Student in an Organized Health Care Education/Training Program; Visit Provider Student in an Organized Health Care Education/Training Program
DX: G08 Intracranial and intraspinal phlebitis and thrombophlebitis (principal); G40.909 Epilepsy, unspecified, not intractable, without status epilepticus; G93.6 Cerebral edema; H54.7 Unspecified visual loss; I61.1 Nontraumatic intracerebral hemorrhage in hemisphere, cortical; I63.9 Cerebral infarction, unspecified; Q28.3 Other malformations of cerebral vessels; R42 Dizziness and giddiness; Z79.01 Long term (current) use of anticoagulants
CPT/HCPCS: 36415; 80048; 82607; 82746; 83735; 84439; 84443

== ENCOUNTER 2023-02-04 03:54 | Outpatient (CLI) | payer OTHER, SELFPAY ==
[2023-02-04 17:23] LABS: TSH (W/Ref FT4) 3.26 uIU/mL (0.36-3.74)
[2023-02-05 09:21] LABS: Lab Add On Test DONE
[2023-02-05 09:42] LABS: FREE T4 0.89 ng/dL (0.76-1.46)
[2023-02-05 17:53] LABS: T3,Free 3.8 pg/mL (2.8-5.3)
== END 2023-02-04 03:55 | disposition home or self-care (01) ==
LOC: LBO 03:54
PROVIDERS: PCP Student in an Organized Health Care Education/Training Program; Visit Provider Student in an Organized Health Care Education/Training Program
DX: R94.6 Abnormal results of thyroid function studies (principal); R79.89 Other specified abnormal findings of blood chemistry
CPT/HCPCS: 36415; 84439; 84443; 84481

== ENCOUNTER 2023-05-01 04:21 | Outpatient (CLI) | payer OTHER, SELFPAY ==
--- NOTE | 2023-05-01 11:20 | PDOC.EEG_ITS ---
Neurology EEG EEG: [facility] Department of Neurology EEG REPORT Date of Recordin05/01/23 Interpreting Physician: Dr. Monique Loyd PCP/Referring Provider: Dr. Izzy Haque Reason for study: Pema Madrigal is a 28 year-old with childhood epilepsy that resolved with more recent CVT and hemorrhagic stroke along with new spells of vision changes within her visual field defect concerning for seizure. Current Medications: Home Medications Medication Instructions Recorded Confirmed Type acetaminophen 325 mg capsule 325 mg PO Q4H PRN 08/09/22 04/08/23 History hydroxyzine HCl 25 mg tablet 25 mg PO QHS 08/09/22 04/08/23 History apixaban 5 mg tablet (Eliquis) 5 mg PO BID #180 tabs 08/27/22 04/08/23 Rx fluoxetine 20 mg capsule 20 mg PO DAILY #90 caps 11/18/22 04/08/23 Rx rimegepant 75 mg disintegrating 75 mg PO ONCE PRN migraine 01/14/23 04/08/23 Rx tablet (Nurtec ODT) headache #8 tabs topiramate 50 mg tablet 50 mg PO .COMPLEX #120 tabs 04/08/23 04/08/23 Rx METHODS: A 21 channel digitized electroencephalogram was performed in the [facility]physiology [facility]. The 10/20 international system of electrode placement was used and bipolar and referential electrode montages were recorded. In addition to EEG the patient was monitored for EKG and lateral/vertical eye movements. Activation procedures of photic stimulation and hyperventilation were performed if applicable. Video was used during activation procedures and during events where applicable. The duration of the recording was 30 minutes. DESCRIPTION OF EEG: The patient was noted to be awake, drowsy, and asleep during the recording. During maximal wakefulness a 9-Hz posterior background rhythm was present which was well-modulated, symmetrical, reactive to eye opening, and of moderate voltage. With eye opening the background activity changed to a low voltage mixture of alpha, beta, and occasional theta range frequencies. Faster frequencies were present in the bilateral anterior head regions. There was a normal anterior-posterior voltage gradient. During drowsiness, there was attenuation of the posterior dominant background rhythm and vertex waves. Stage II sleep was present with symmetrical sleep spindles, K-complexes, and vertex waves. Throughout the recording, there was asymmetry seen between the hemispheres with higher amplitude and irregular mild slowing in the right posterior hemisphere. There were frequent high-amplitudeT6>>>T4 sharp-waves. There were not clearly epileptic. Activating Procedures: Photic stimulation was performed which produced no posterior driving response. Hyperventilation was performed with moderate effort and produced no physiological slowing of the background. EKG: EKG revealed normal sinus rhythm. INTERPRETATION: This EEG is abnormal due to: #1. Focal slowing of the posterior right hemisphere. #2. Frequent T6 sharp-waves, though these were not clearly epileptic. PRIOR EEG: none CLINICAL CORRELATION: The findings above are consistent with the patient's known history of prior right hemisphere hemorrhagic stroke. No definite epileptiform activity was present. Epilepsy remains a clinical diagnosis and a normal EEG does not rule out epilepsy. Clinical correlation is advised. Monique Loyd MD
== END 2023-05-01 04:22 | disposition home or self-care (01) ==
LOC: RT 04:21
PROVIDERS: PCP Student in an Organized Health Care Education/Training Program; Visit Provider Psychiatry & Neurology Neurology
DX: R41.840 Attention and concentration deficit (principal); I69.198 Other sequelae of nontraumatic intracerebral hemorrhage
CPT/HCPCS: 95819

== ENCOUNTER 2023-07-16 12:28 | Outpatient (REF) | payer OTHER, SELFPAY ==
[2023-07-16 13:16] LABS: Anion Gap 8.7 mmol/L (3-11); BUN 9 mg/dL (7-18); CO2 27.3 mmol/L (21.0-32.0); CREATININE 0.7 mg/dL (0.55-1.02); Calcium 9.9 mg/dL (8.5-10.1); Chloride 104 mmol/L (98-107); Estimated GFR 121.49 (mL/min/1.73m2); Glucose 96 mg/dL (74-106); Potassium 4.7 mmol/L (3.5-5.1); Sodium 140 mmol/L (136-145); TSH (W/Ref FT4) 4.01 uIU/mL (0.36-3.74)
[2023-07-16 13:20] LABS: Vitamin D 25 Total 23.1 ng/mL (30-100)
[2023-07-16 13:35] LABS: FREE T4 0.81 ng/dL (0.76-1.46)
== END 2023-07-16 12:29 | disposition home or self-care (01) ==
LOC: LBN 12:28
PROVIDERS: PCP Student in an Organized Health Care Education/Training Program; Visit Provider Student in an Organized Health Care Education/Training Program
DX: R79.89 Other specified abnormal findings of blood chemistry (principal); E55.9 Vitamin D deficiency, unspecified
CPT/HCPCS: 80048; 82306; 84439; 84443; 84481

== ENCOUNTER 2024-02-12 05:16 | Outpatient (CLI) | payer OTHER, SELFPAY ==
[2024-02-12 09:52] LABS: HCT 39.8 % (36.0-46.0); HGB 12.6 g/dL (11.2-15.7); MCH 26.9 pg (27.0-33.0); MCHC 31.7 % (32.0-36.0); MCV 85 fL (80-95); MPV 10.9 fL (8.0-11.0); Platelet Count 191 10^3/uL (130-400); RBC 4.68 10^6/uL (3.93-5.22); RDW 15.9 % (11.7-14.6); RDW-SD 50.4 fL; WBC 4.97 10^3/uL (4.4-10.8)
[2024-02-12 10:45] LABS: Bacteria Rare HPF (Negative); C & S Indicated? No; Casts Negative LPF (Negative); Crystals Negative HPF (Negative); Epithelial Cells Few HPF (Negative); Mucus Trace (Negative); RBC 0-2 HPF (0-2); WBC 0-2 HPF (0-5)
[2024-02-12 11:15] LABS: Folate > 20.0 ng/mL (8.6-20.0)
[2024-02-12 11:19] LABS: ALT 19 U/L (14-59); AST 9 U/L (15-37); Albumin 4.6 g/dL (3.4-5.0); Alkaline Phosphatase 81 U/L (46-116); Anion Gap 9.5 mmol/L (3-11); BUN 11 mg/dL (7-18); Bilirubin, Total 0.5 mg/dL (0.2-1.0); CO2 29.5 mmol/L (21.0-32.0); CREATININE 0.8 mg/dL (0.55-1.02); Calcium 9.3 mg/dL (8.5-10.1); Calculated LDL 92 mg/dL (<100); Chloride 104 mmol/L (98-107); Cholesterol 173 mg/dL (<200); Glucose 93 mg/dL (74-106); HDL Cholesterol 70 mg/dL (40-60); Potassium 3.8 mmol/L (3.5-5.1); Sodium 143 mmol/L (136-145); TSH (W/Ref FT4) 2.15 uIU/mL (0.36-3.74); Triglyceride 58 mg/dL (<150); Vitamin B12 438 pg/mL (193-986); Vitamin D 25 Total 20.7 ng/mL (30-100)
[2024-02-14 17:26] LABS: Levetiracetam 49.8 mcg/mL
== END 2024-02-12 05:17 | disposition home or self-care (01) ==
LOC: LBO 05:16
PROVIDERS: Psychiatry & Neurology Neurology; PCP Student in an Organized Health Care Education/Training Program; Visit Provider Student in an Organized Health Care Education/Training Program
DX: N28.9 Disorder of kidney and ureter, unspecified (principal); I95.9 Hypotension, unspecified; R79.89 Other specified abnormal findings of blood chemistry; E53.8 Deficiency of other specified B group vitamins; E55.9 Vitamin D deficiency, unspecified; Z91.89 Other specified personal risk factors, not elsewhere classified; R53.83 Other fatigue; I69.398 Other sequelae of cerebral infarction; R55 Syncope and collapse; Z13.220 Encounter for screening for lipoid disorders
CPT/HCPCS: 80053; 80061; 82306; 85027; 80177; 81015; 82607; 82746; 84443

== ENCOUNTER 2024-03-09 02:54 | Outpatient (CLI) | payer OTHER, SELFPAY ==
[2024-03-09 12:33] LABS: HCT 40.1 % (36.0-46.0); HGB 13.1 g/dL (11.2-15.7); MCH 28.4 pg (27.0-33.0); MCHC 32.7 % (32.0-36.0); MCV 87 fL (80-95); MPV 10.2 fL (8.0-11.0); Platelet Count 186 10^3/uL (130-400); RBC 4.62 10^6/uL (3.93-5.22); RDW 15.6 % (11.7-14.6); RDW-SD 49.8 fL; WBC 7.76 10^3/uL (4.4-10.8)
[2024-03-09 13:09] LABS: Iron 71 ug/dL (50-170); Total Iron Binding Capacity 425 ug/dL (250-450); Transferrin Sat 17 % (15-50)
[2024-03-09 14:37] LABS: Vitamin D 25 Total 30.7 ng/mL (30-100)
== END 2024-03-09 02:55 | disposition home or self-care (01) ==
LOC: LBO 02:54
PROVIDERS: PCP Student in an Organized Health Care Education/Training Program; Visit Provider Student in an Organized Health Care Education/Training Program
DX: L21.0 Seborrhea capitis (principal); Z12.83 Encounter for screening for malignant neoplasm of skin; R53.83 Other fatigue; R79.89 Other specified abnormal findings of blood chemistry; K90.9 Intestinal malabsorption, unspecified
CPT/HCPCS: 36415; 82306; 85027; 83540; 83550

== ENCOUNTER 2024-07-01 00:02 | Emergency (ER) | payer OTHER, SELFPAY ==
[2024-07-01] VITALS (20 sets, daily range): BP systolic 86–137; BP diastolic 42–66; PULSE 53–86; RESP 10–24; O2SAT 95–100
--- NOTE | 2024-07-01 | RT.EKG_ITS ---
APPROVED REPORT Exam: Resting ECG Reason for Exam: seizure Patient Location: E HR:78 bpm ECG Measurements Heart Rate 78 AXIS VT 162 P 67 QRSd 72 QRS 59 QT 352 T 59 QTc 402 Conclusion Sinus rhythm...normal P axis, V-rate 60- [address] segment or T wave abnormalities to suggest occlusive [place]
--- NOTE | 2024-07-01 00:30 | DI.CT_ITS ---
Exam(s) CT BRAIN CTA EXAM: CT BRAIN CTA CLINICAL HISTORY: new generalized seizure, hx AVM/craniotomy. TECHNIQUE: Imaging Protocol: Both noninfused and contrast infused CT scans of the brain were perform ed. IV Contrast Dose =70 cc Axial computed tomography images with coronal and sagittal reformatted images were created and review ed COMPARISON: CT CT BRAIN CTA from 11/16/2022 FINDINGS: ANTERIOR CIRCULATION: Both internal carotid arteries are patent in the skull base and cavernous sinus es. Supraclinoid aspects are patent and nonaneurysmal. Both A1 segments are patent as are the anter ior cerebral arteries. There is no aneurysm at the level the anterior communicating artery. Middle cerebral arteries are patent bilaterally. POSTERIOR CIRCULATION: Basilar artery is formed at the skull base by both patent vertebral arteries and the basilar artery a scends in the midline with no significant stenosis nor dolichoectasia. Distally it gives off patent bilateral superior cerebellar arteries. Above this level patent posterior cerebral arteries are form ed by combination of basilar artery and posterior communicating arteries on both sides of the [place]. There is no aneurysm of the tip of the basilar artery. Right posterior parietal craniotomy site again noted. Postoperative appearance of the not appears unc hanged. Stable residual draining veins There is no evidence of intracranial hemorrhage, new mass effect, or shift of midline structures. Enc ephalomalacia in the right parieto-occipital region is unchanged as well as some ex vacuo dilatation of ipsilateral atrium of the right lateral ventricle. There has been interval placement of some radio paque embolization material. There are no ring enhancing lesions in the brain and there is no abnormal meningeal enhancement, foca l or diffuse. IMPRESSION: No significant acute intracranial findings. Appearance of the posterior right-sided AVM exhibits evidence of interval procedure with placement of embolization material.. RADIATION DOSE DELIVERED: 1,871.81mGy.cm Total DLP DATA REPOSITORY: All CT scans at this facility are submitted to the National Radiology Data Registry (NRDR) Dose Index Registry (DIR) with the [employer] (ACR). RADIATION OPTIMIZATION: All CT scans at this facility use at least one of these dose optimization te chniques: automated exposure control; mA and/or kV adjustment per patient size (includes targeted exa ms where dose is matched to clinical indication); or iterative reconstruction.
[2024-07-01 00:32] LABS: Abs Immature Grans 0.04 10^3/uL (0.0-0.06); Absolute Basophil Count 0.04 10^3/uL (0.0-0.2); Absolute Eosinophil Count 0.12 10^3/uL (0.0-0.7); Absolute Lymphocyte Count 1.71 10^3/uL (1.2-3.4); Absolute Monocyte Count 0.43 10^3/uL (0.1-0.8); Absolute Neutrophil Count 6.96 10^3/uL (1.2-6.7); Basophils % 0.4 %; Eosinophils % 1.3 %; HCT 38.6 % (36.0-46.0); HGB 12.7 g/dL (11.2-15.7); Immature Grans % 0.4 %; Lymphocytes % 18.4 %; MCH 29.5 pg (27.0-33.0); MCHC 32.9 % (32.0-36.0); MCV 90 fL (80-95); MPV 9.9 fL (8.0-11.0); Monocytes % 4.6 %; Neutrophils % 74.9 %; Platelet Count 162 10^3/uL (130-400); RDW 14.1 % (11.7-14.6); RDW-SD 46.2 fL
--- NOTE | 2024-07-01 00:41 | ED.GENADUL_ITS ---
Discharge Plan Disposition Patient Disposition: Home Condition: Good Discharge Details Clinical Impression: Seizure Primary Care Provider: Izzy Haque ED Provider: Jannet Blake Home Meds and New Rx's Prescriptions: New levetiracetam [Keppra] 500 mg tablet 1,500 mg PO BID Qty: 120 0RF Continued prochlorperazine maleate 5 mg tablet See Rx Instructions PO TID PRN (Reason: nausea and vomiting or headache) Qty: 30 2RF Rx Instructions: 5-10mg orally three times a day PRN; Nurtec ODT 75 mg tablet,disintegrating 75 mg PO ONCE PRN (Reason: migraine headache) Qty: 24 3RF Rx Instructions: as a single dose; no more than 1 tab per day Discontinued levetiracetam 1,000 mg tablet 1,000 mg PO BID Qty: 180 3RF Discharge Instructions Instructions: Seizures, Adult ED Additional Instructions: Increase your levetiracetam to 1500mg twice a day. Call your neurologist today to schedule an appointment for as soon as possible to followup on your visit here. DO NOT DRIVE, SWIM, OPERATE HEAVY MACHINERY, OR ENGAGE IN ANY ACTIVITY WHERE LOSING CONSCIOUSNESS COULD CAUSE INJURY TO YOURSELF OR SOMEONE ELSE UNTIL CLEARED BY NEUROLOGY. Return to the emergency department for new or worsening symptoms including fever, numbness, weakness, if you have another seizure, or if you have any other concerns. Referrals: Izzy Haque DO [Primary Care Provider] - HPI General Mode of arrival: ambulatory . Date/Time Provider Initiated Documentation: 07/01/24 00:12 . Limitations to Documentation: no limitations . Information obtained by: patient and family . HPI Narrative: 29yo F with hx AVM s/p craniotomy, partial seizures on keppra 1g BID no missed doses, presenting for generalized tonic clonic seizure. Has never had generalized seizures before. Witnessed by S.O. at bedside, approximately 5 minutes of tonic clonic activity, unresponsiveness, followed by ~10 minute post ictal period. Back to baseline now. Mild headache, otherwise denies pain. No N/V. No numbness, tingling, weakness. No recent head injuries. No recent illness. Otherwise in her usual state of health with no fevers, chills, rash, abdominal pain, dysuria, hematuria, or other concerns. Related Data Home Medications ?Medication ?Instructions ?Recorded ?Confirmed prochlorperazine maleate 5 mg See Rx Instructions PO TID PRN 01/13/24 07/01/24 tablet nausea and vomiting or headache #30 tabs rimegepant 75 mg disintegrating 75 mg PO ONCE PRN migraine 01/13/24 07/01/24 tablet (Nurtec ODT) headache #24 tabs levetiracetam 500 mg tablet 1,500 mg (3 x 500 mg) PO BID #120 07/01/24 (Keppra) tabs Previous Rx's ?Medication ?Instructions ?Recorded prochlorperazine maleate 5 mg See Rx Instructions PO TID PRN 01/13/24 tablet nausea and vomiting or headache #30 tabs rimegepant 75 mg disintegrating 75 mg PO ONCE PRN migraine 01/13/24 tablet (Nurtec ODT) headache #24 tabs levetiracetam 500 mg tablet 1,500 mg (3 x 500 mg) PO BID #120 07/01/24 (Keppra) tabs Allergies Allergy/AdvReac Type Severity Reaction Status Date / Time lamotrigine Allergy Mild rash Verified 07/01/24 00:28 [id number] Antimigraine AdvReac Intermediate bleeding Unverified 07/01/24 00:28 Agents risk 2' CVA General Stated Complaint: Seizure PATRICE: 3 Review of Systems Narrative: see HPI Exam Narrative Exam Narrative: General: Alert, well appearing, well nourished, in no acute distress. Head: Normocephalic, atraumatic Neck: Trachea midline, ?Neck supple. ENT: ?MMM.? No oropharygeal lesions or exudate. Cardiac: ?RRR, no murmurs appreciated Resp: No respiratory distress. CTAB. Abd: ?Soft, non-distended, nontender : ?No suprapubic tenderness. Extremities: ?No deformities.? No peripheral edema. Neuro: ? GCS 15.? PERRL.? EOMI.? Fluent speech, no dysarthria. Motor- 5/5 strength symmetric bilateral upper and lower extrmeties including shoulder abductors/adductors, elbow flexors/extensors, wrist flexors/extensors, finger abductors/adductors, hipflexors/extensors, knee flexors/extensors, ankle dorsiflexors and planter flexors. Sensation- ?Intact to light touch and symmetric multiple dermatomes including upper and lower extremities Coordination- No dysmetria on finger to nose Gait/station: ?Normal stance.? No truncal ataxia. Steady gait with equal normal steps CRANIAL NERVES: II: Pupils equal and reactive, III, IV, : EOM intact, no gaze preference or deviation, no nystagmus. V: normal sensation in V1, V2, and V3 segments bilaterally VII: no asymmetry, no nasolabial fold flattening VIII: normal hearing to speech IX, X: normal palatal elevation, no uvular deviation XI: 5/5 head turn and 5/5 shoulder shrug bilaterally XII: midline tongue protrusion Course Vital Signs Vital signs: Vital Signs Respiratory Rate 16 07/01/24 00:35 Blood Pressure 107/58 L 07/01/24 00:35 Pulse Oximetry 99 07/01/24 00:35 Pulse 83 07/01/24 00:35 Respiratory Rate 16 07/01/24 00:35 Respiratory Effort Normal, Non-Labored 07/01/24 00:29 Respiratory Depth Normal 07/01/24 00:29 Respiratory Pattern Normal 07/01/24 00:29 Blood Pressure 107/58 L 07/01/24 00:35 Pulse Oximetry 99 07/01/24 00:35 Pain Level 3 07/01/24 00:10 Lab/Test Results Lab/Test Results: Laboratory Tests Range/Units 07/01/24 00:22 WBC (4.4-10.8) 10^3/uL 9.30 RBC (3.93-5.22) 10^6/uL 4.30 Hgb (11.2-15.7) g/dL 12.7 Hct (36.0-46.0) % 38.6 MCV (80-95) fL 90 MCH (27.0-33.0) pg 29.5 MCHC (32.0-36.0) % 32.9 RDW (11.7-14.6) % 14.1 Plt Count (130-400) 10^3/uL 162 MPV (8.0-11.0) fL 9.9 Immature Gran % % 0.4 Neutrophils % % 74.9 Lymphocytes % % 18.4 Monocytes % % 4.6 Eosinophils % % 1.3 Basophils % % 0.4 Nucleated RBC % (0.0-0.3) % 0.0 Absolute Neutrophils (1.2-6.7) 10^3/uL 6.96 H Absolute Lymphocytes (1.2-3.4) 10^3/uL 1.71 Absolute Monocytes (0.1-0.8) 10^3/uL 0.43 Absolute Eosinophils (0.0-0.7) 10^3/uL 0.12 Absolute Basophils (0.0-0.2) 10^3/uL 0.04 Medical Decision Making 29yo F with hx AVM s/p craniotomy, partial seizures on keppra 1g BID no missed doses, presenting for generalized tonic clonic seizure. Has never had generalized seizures before. No clear provoking factor. Vital signs and physical exam reassuring, normal neurologic exam. Given change in baseline seizures, will evaluate with labs, UA, CT, EKG EKG NSR, appropriate intervals, no ST segment or T wave abnormalities to suggest occlusive NV, no QT prolongation to suggest torsades. Labs reviewed as below, CBC & CMP reassuring with no actionable abnormalities. Not . UA not infected. CT independently reviewed, no intracranial hemmraoghe or mass on my view, radiology read below with no acute abnormalities. Consulted with teleneurology; advised 1g IV keppra bolus (given) and increasing home keppra from 1g BID to 1.5g BID. On reassessment she remains well appearing with reassuring vital signs. Discharged home on increased dose of keppra. Discharge instructions and return precautions were reviewed with patient who verbalized understanding. All questions were answered and she is in full agreement with the plan. Imaging Data Radiologic Study: Imaging: CT Scan Radiologist's impression: IMPRESSION: 1. No acute brain findings. 2. Allowing for poor contrast bolus on the prior study, the postoperative appearance of the AVM is not significantly changed. There is no residual enhancing nidus. Stable residual draining vein(s). Interval surgical/embolization material placement. Lab Data Lab results reviewed: Yes I reviewed the patient's lab results. Labs: Laboratory Tests Range/Units 07/01/24 00:22 WBC (4.4-10.8) 10^3/uL 9.30 RBC (3.93-5.22) 10^6/uL 4.30 Hgb (11.2-15.7) g/dL 12.7 Hct (36.0-46.0) % 38.6 MCV (80-95) fL 90 MCH (27.0-33.0) pg 29.5 MCHC (32.0-36.0) % 32.9 RDW (11.7-14.6) % 14.1 Plt Count (130-400) 10^3/uL 162 MPV (8.0-11.0) fL 9.9 Immature Gran % % 0.4 Neutrophils % % 74.9 Lymphocytes % % 18.4 Monocytes % % 4.6 Eosinophils % % 1.3 Basophils % % 0.4 Nucleated RBC % (0.0-0.3) % 0.0 Absolute Neutrophils (1.2-6.7) 10^3/uL 6.96 H Absolute Lymphocytes (1.2-3.4) 10^3/uL 1.71 Absolute Monocytes (0.1-0.8) 10^3/uL 0.43 Absolute Eosinophils (0.0-0.7) 10^3/uL 0.12 Absolute Basophils (0.0-0.2) 10^3/uL 0.04 Sodium (136-145) mmol/L 143 Potassium (3.5-5.1) mmol/L 4.0 Chloride (98-107) mmol/L 107 Carbon Dioxide (21.0-32.0) mmol/L 25.0 Anion Gap (3-11) mmol/L 11.0 BUN (7-18) mg/dL 10 Creatinine (0.55-1.02) mg/dL 0.8 Est GFR (CKD-EPI 2020) (mL/min/1.73m2) 102.86 Glucose (74-106) mg/dL 106 Calcium (8.5-10.1) mg/dL 9.3 Total Bilirubin (0.2-1.0) mg/dL 0.53 AST (15-37) U/L 14 L ALT (14-59) U/L 12 L Alkaline Phosphatase (46-116) U/L 73 Total Protein (6.4-8.2) g/dL 7.3 Albumin (3.4-5.0) g/dL 4.3 Beta HCG, Quant (1-3) mIU/mL < 1 L Quality:[facility] Health Related Social Needs: No Data to Display PFSH All Active Problems (Updated 07/01/24 @ 05:13 by Jannet Blake MD) Seizure (Acute) Low vitamin D level (Acute) Dandruff in adult (Acute) Vertigo as late effect of cerebrovascular accident (CVA) (Acute) Fatigue (Acute) Dural arteriovenous fistula (Acute) repaired, [facility] Neuro .. [ ] notes Driving safety issue (Acute) per eyesight, per Rehab/Neuro .. [ ] driving test planned ((NOT a sz risk)) Elevated TSH (Acute) Intracranial hemorrhage, spontaneous intraparenchymal, associated with venous infarction, acute (Acute) Left homonymous hemianopsia (Acute) Occipital stroke (Acute) per pt report, 08/18/22, ik [ ] awaiting [facility] D/C Summ+ [facility] [place] D/C Summ: Rt Parieto-Occip ICH in setting of CVT Vision loss (Acute) per pt report, tel, 08/18/22, ik Medical History History of seizure Focal seizures none x mos .. keppra continued by local neuro, 01/2024 Anticoagulated by anticoagulation treatment Eliquis stopped, by Dr. 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 08/2023, ik Presence of IUD Kyleena IUD inserted 10/15/22 Epilepsy Depressive disorder Acute intracerebral hemorrhage s/p thrombus Has received third dose of hepatitis B vaccine s/p multiple immuniztn w/o conversion .. [ ] Occ Med, Summer 2021 Hx: UTI (urinary tract infection) Three, but w/o complications (@ ROS, 27 yo) Encounter for medication review and counseling consider wellbutrin review with KG .. SL vs XL due to elevated HR and sleep issues at times At risk for osteoporosis 2' Vit B12, Vit D deficiency < 26yo .. presuming malabsorption.. Screening TBD. Regular menses. Active. Non smoker. Family history of high cholesterol Mo .. but no active known CVD Wears glasses Contacts Migraine As teen, none now x 2 yrr (05/22/22). Seizure disorder As a child, gran mal and Hx Depakote. None since 16yo. Vitamin B12 deficiency Presumed malabsorption, but no work up per [place] [facility] Hx per pt report. Vitamin D deficiency Surgical History S/P craniotomy 08/06/23 Dural pial AFV resection History of cholecystectomy (~09/2019) 2' obstructing stone, sudden, urgent surgery. Intermittent nausea since then.. Family History Maternal Grandfather Alcohol use disorder Mother Depression Heart disease Father Depression Brother Depression Social History Smoking/Tobacco Use Status: Never Smoking risk assessment performed?: Yes Alcohol Intake: never Drug use: Never Substance use type: does not use Adopted: No Caregiver/Support person: No Foster care: No Household members: spouse Housing: house Number of Children: 0 Communication Needs: Corrective Lenses Education Level: college Details: bachelor's degree Do you need help understanding health information?: Never current occupation: RN Pets and animals: No Sexually active: Yes Do you think of yourself as: straight/heterosexual Current gender identity: female What is your relationship status?: How often do you talk on the phone with friends or family?: twice per week How often do you get together with friends or relatives?: once per week How often do you attend caodaism or alevism services?: decline to answer Do you belong to any clubs or organized social groups?: no Panel score (0-1 are the most socially isolated patients): 2 What type of physical activity do you participate in: other Details: hiking, kayaking and yoga Duration: 30-45 minutes/day Frequency: 3-4 times per week Amanda/Synagogue: None Special amanda needs: No Seatbelt use: always Helmet use: Yes Helmet use: always Drive intox or ride w/intox scoop driver: No Female Reproductive History Menstrual control method: progestin IUCD History History 0 Para Hx # Term Pregnancies Multiple births Hx # Pregnancies Ectopic pregnancies AB induced Hx Number of Living Children AB spontaneous
[2024-07-01 00:54] LABS: ALT 12 U/L (14-59); AST 14 U/L (15-37); Albumin 4.3 g/dL (3.4-5.0); Alkaline Phosphatase 73 U/L (46-116); BUN 10 mg/dL (7-18); Bilirubin, Total 0.53 mg/dL (0.2-1.0); CREATININE 0.8 mg/dL (0.55-1.02); Calcium 9.3 mg/dL (8.5-10.1); Chloride 107 mmol/L (98-107); Estimated GFR 102.86 (mL/min/1.73m2); Glucose 106 mg/dL (74-106); Sodium 143 mmol/L (136-145); Total Protein 7.3 g/dL (6.4-8.2)
[2024-07-01 00:56] LABS: HCG Quant, Pregnancy < 1 mIU/mL (1-3)
[2024-07-01] MEDS: Normal Saline - Diluent 50 ML VIAL IJ (02:08)
[2024-07-01] MEDS: Omnipaque 350 MG/ML 100 ML BTL IJ (02:08)
--- NOTE | 2024-07-01 02:55 | DI.VRAD_ITS ---
PROCEDURE INFORMATION: Exam: CTA Head Without And With Contrast, Arteriography Exam date and time: 07/01/2024 1:35 AM Age: 29 years old Clinical indication: Convulsions / seizures; Additional info: New generalized seizure, HX avm/craniotomy TECHNIQUE: Imaging protocol: Computed tomographic angiography of the head without and with contrast. Exam focused on the arteries. 3D rendering (Not supervised by radiologist): MIP and/or 3D reconstructed images were created by the technologist. Contrast material: OMNI 350; Contrast volume: 70 ml; Contrast route: INTRAVENOUS (IV); COMPARISON: CT BRAIN CTA 11/16/2022 9:24 PM FINDINGS: ANTERIOR CIRCULATION: Right internal carotid artery: Intracranial segment is patent with no significant stenosis or occlusion. No aneurysm. Right middle cerebral artery: No occlusion or significant stenosis. No aneurysm. Right anterior cerebral artery: No occlusion or significant stenosis. No aneurysm. Left internal carotid artery: Intracranial segment is patent with no significant stenosis. No aneurysm. Left middle cerebral artery: No occlusion or significant stenosis. No aneurysm. Left anterior cerebral artery: No occlusion or significant stenosis. No aneurysm. POSTERIOR CIRCULATION: Right vertebral artery: No occlusion or significant stenosis. No aneurysm. Left vertebral artery: No occlusion or significant stenosis. No aneurysm. Basilar artery: No occlusion or significant stenosis. No aneurysm. Right posterior cerebral artery: No occlusion or significant stenosis. No aneurysm. Left posterior cerebral artery: No occlusion or significant stenosis. No aneurysm. Other arteries: Allowing for poor contrast bolus on the prior study, the postoperative appearance of the AVM is not significantly changed. There is no residual enhancing nidus. Stable residual draining vein(s). Interval surgical/embolization material placement. HEAD: Brain: Right parieto-occipital encephalomalacia. No brain edema. No intracranial hemorrhage. Cerebral ventricles: Normal. No ventriculomegaly. Bones: Interval craniotomy. Paranasal sinuses: Visualized sinuses are normal. No fluid levels. Mastoid air cells: Visualized mastoids are normal. No mastoid effusion. Soft tissues: Unremarkable. IMPRESSION: 1. No acute brain findings. 2. Allowing for poor contrast bolus on the prior study, the postoperative appearance of the AVM is not significantly changed. There is no residual enhancing nidus. Stable residual draining vein(s). Interval surgical/embolization material placement. Dictated and Authenticated by: David Schwab MD. Ordering:ERLIN Power MD
[2024-07-01] MEDS: levETIRAcetam 1,000 MG in Normal Saline 100 ML 400 MG IVPB (05:04)
[2024-07-01 05:20] LABS: Bilirubin Negative (Negative); Blood Negative (Negative); Clarity Clear (Clear); Glucose Negative (Negative); Ketones 80 mg/dL (Negative); Leukocyte Esterase Negative (Negative); Nitrite Negative (Negative); Urobilinogen 0.2 mg/dL (Up to 0.2)
[2024-07-03 10:25] LABS: Levetiracetam 33.8 mcg/mL
== END 2024-07-01 05:32 | disposition home or self-care (01) ==
PROVIDERS: Emergency Provider Student in an Organized Health Care Education/Training Program; PCP Student in an Organized Health Care Education/Training Program
DX: R56.9 Unspecified convulsions (principal); R51.9 Headache, unspecified
CPT/HCPCS: 36415; 36416; 70496; 80053; 82962; 93005; 96365; 99285; 80177; 81003; 84702; 85025; 93010; 99284; J1953; J3490

== ENCOUNTER 2024-07-08 03:04 | Outpatient (CLI) | payer OTHER, SELFPAY ==
[2024-07-08 08:32] LABS: Ferritin 15 ng/mL (8-252); Vitamin D 25 Total 31.9 ng/mL (30-100)
[2024-07-08 08:35] LABS: Iron 116 ug/dL (50-170); Total Iron Binding Capacity 351 ug/dL (250-450); Transferrin Sat 33 % (15-50)
== END 2024-07-08 03:05 | disposition home or self-care (01) ==
LOC: LBO 03:04
PROVIDERS: PCP Student in an Organized Health Care Education/Training Program; Visit Provider Student in an Organized Health Care Education/Training Program
DX: R79.89 Other specified abnormal findings of blood chemistry (principal); E61.1 Iron deficiency; G08 Intracranial and intraspinal phlebitis and thrombophlebitis; H53.462 Homonymous bilateral field defects, left side; I62.9 Nontraumatic intracranial hemorrhage, unspecified; I63.6 Cerebral infarction due to cerebral venous thrombosis, nonpyogenic; R56.9 Unspecified convulsions; I67.1 Cerebral aneurysm, nonruptured
CPT/HCPCS: 36415; 82306; 82728; 83540; 83550

== ENCOUNTER 2025-02-16 13:18 | Outpatient (REF) | payer OTHER, SELFPAY ==
--- NOTE | 2025-02-16 13:10 | PAPFT_PTH ---
PATIENT: Pema Madrigal LOC: [facility] U#:[id number] AGE/SX: 30/F ROOM: RE02/16/[address]: Amarilis Balderrama NP : [id number] BED: DIS: 02/16/2025 SPEC #: [id number] RECD: 02/16/25 17:35 STATUS: CARLYLE REAminah #: [id number] LARA: 02/16/25 13:[address]: Amarilis Balderrama NP DEPT: [facility] Cytology RECD BY: Kim Martinez ENTERED: 02/16/25 17:35 SP TYPE: PAPFT OTHR DR: Izzy Haque, DO Tissues: 1 - CX/ENDOCX FOR PAP SMEARS Procedures: PAP THIN PREP/[facility] Screening Comments: [id number]
== END 2025-02-16 13:19 | disposition home or self-care (01) ==
LOC: LBN 13:18
PROVIDERS: PCP Student in an Organized Health Care Education/Training Program; Visit Provider Nurse Practitioner Women's Health
DX: Z12.4 Encounter for screening for malignant neoplasm of cervix (principal)
CPT/HCPCS: 88142

== ENCOUNTER 2025-06-13 10:42 | Outpatient (REF) | payer OTHER, SELFPAY | END 2025-06-13 10:43 | disposition home or self-care (01) | LOC: LBN 10:42 | PROVIDERS: PCP Family Medicine; Visit Provider Nurse Practitioner Women's Health | DX: R30.0 Dysuria (principal) | CPT/HCPCS: 87086 ==